=== PATIENT | female | born 1970 | race African-American/Black ===

== ENCOUNTER 2017-10-22 13:10 | Emergency (ER) | payer OTHER ==
[~2017-10-22] VITALS: Ht 172.7 cm; Wt 77.1 kg
[~2017-10-22 13:10] MED LIST: ADDERALL 20 MG20 M1 PO; HYDROXYCHLOROQ200 M1 PO; IBUPROFEN 800800 M1; TRAMADOL 50 MG50 MG PO
[2017-10-22] MEDS ORDERED: HYDROCODONE-AP1 EAC6 PO (14:50)
[2017-10-22] MEDS ORDERED: KEFLEX500 M1 PO (14:50)
[2017-10-22] MEDS ORDERED: ROXICODONE5 M2 PO (16:00)
== END 2017-10-22 16:06 | disposition home or self-care (01) ==
LOC: ER 13:10
DX: S61.303A Unspecified open wound of left middle finger with damage to nail, initial encounter (principal); Z23 Encounter for immunization; Z90.49 Acquired absence of other specified parts of digestive tract; W27.0XXA Contact with workbench tool, initial encounter; Y93.89 Activity, other specified; Y92.89 Other specified places as the place of occurrence of the external cause; Y99.8 Other external cause status